=== PATIENT | male | born 1955 | race African-American/Black ===

== ENCOUNTER 2024-10-31 15:56 | Emergency (ER) | payer OTHER, SELFPAY ==
[2024-10-31 16:01] VITALS: BP 147/78
[2024-10-31 16:40] LABS: % Basophils 0.5 % (0-2); % Eosinophils 1.3 % (0-6); % Immature Granulocytes 0.3 % (0-0.5); % Lymphocytes 46.6 % (20.5-51.1); % Monocytes 8.4 % (1.7-9.3); % Neutrophils 42.9 % (42.2-75.2); Absolute Eosinophils 0.1 10^3/uL (0-0.7); Absolute Lymphocytes 3.5 10^3/uL (1.2-3.4); Absolute Monocytes 0.6 10^3/uL (0.1-0.6); Absolute Neutrophils 3.2 10^3/uL (1.4-6.5); Hematocrit 38.6 % (39.0-52.0); Hemoglobin 12.7 g/dL (13.0-18.0); Mean Corp Hgb Conc. 32.9 g/dL (33.0-37.0); Mean Corpuscular Hgb 28.1 pg (27.0-31.0); Mean Corpuscular Volume 85.4 fL (80.0-94.0); Mean Platelet Volume 10.4 fL (7.4-10.4); Nucleated Red Blood Cells % 0 % (-); Platelet Count 189 10^3/uL (130-400); Red Blood Cell Count 4.52 10^6/uL (4.70-6.10); Red Cell Dist. Width 12.8 % (11.5-14.5); White Blood Cell Count 7.5 10^3/uL (4.8-10.8)
[2024-10-31 16:58] LABS: ALT (SGPT) 22 U/L (0-50); AST (SGOT) 22 U/L (17-59); Albumin 5.1 g/dl (3.5-5.0); Alkaline Phosphatase 114 U/L (38-126); Blood Urea Nitrogen 15 mg/dl (9-20); Calcium 10.1 mg/dl (8.4-10.2); Carbon Dioxide 27 mmol/L (22-30); Chloride 103 mmol/L (98-107); Glucose 170 mg/dl (70-99); Potassium 4.4 mmol/L (3.5-5.1); Sodium 141 mmol/L (135-145); Total Bilirubin 0.5 mg/dl (0.2-1.3); Total Protein 8.6 g/dl (6.3-8.2); eGFR > 60.00
[2024-10-31 17:08] LABS: Troponin I < 0.012 ng/ml
[2024-10-31 18:48] VITALS: BP 105/75
--- NOTE | 2024-10-31 19:45 | ED.GENMED ---
History of Present Illness
General
Chief Complaint: Chest Pain
Source: patient
Time Seen by Provider: 10/31/24 19:33
History of Present Illness
History of Present Illness:
69-year-old male presents to the emergency room complaining of pain in the left lower chest that has been occurring intermittently for the past 3 or so days. He describes it as a sharp pain that is present for less than a second. It occurs every
minute or so. No associated shortness of breath, nausea, diaphoresis. The pain does not radiate. It does not get worse with deep inspiration. Movement does not change the pain or cause the pain. He denies any fever, chills.
Past History
Past History
ED Past Medical History: NIDDM and Other (Genital herpes)
Social History
Tobacco: Non-smoker
Phy Exam
Physical Exam
Physical Exam:
General: Awake, Alert, Oriented X3. No acute distress.
Vitals: unremarkable
Head: Atraumatic
Eyes: Pupils equal, EOMI
Throat: Airway intact, no exudates
Chest wall: No rash, no tenderness to palpation, no crepitance
Neck: Trachea midline
Lungs: Clear and equal b/l
Heart: Regular rate, no murmurs
Abd: Soft, Nontender, No pulsatile mass
Neuro: Nonfocal
Skin: Warm, dry, no rash
Extremities: pulses equal b/l, no edema
Scores
Heart Score for Chest Pain Patients
STEMI patient?: No
History: Slightly or Non-Suspicious
ECG: Nonspecific Repolarization
Age: >45 - <65 years
Risk Factors: >/= 3 Risk Factors or History of CAD
Troponin: </= Normal Limit
Heart Score for Chest Pain Patients: 4
Heart Score Risk: 20.3% MACE over next 6 weeks
Course
Orders/Labs/Results
Orders:
Orders
10/31/24 15:57
Electrocardiogram (*1) Urgent
Reason for Study: Chest Pain
EKG- Treatment ONCE
10/31/24 16:29
Complete Blood Count/With Diff Urgent
Comprehensive Metabolic Panel Urgent
Troponin I Urgent
10/31/24 19:41
Electrocardiogram (*1) Urgent
Reason for Study: Chest Pain
EKG- Treatment ONCE
10/31/24 19:42
CR Chest - 2 Views Urgent
Comment:
Reason For Exam: chest pain
10/31/24 19:57
Troponin I Urgent
Abnormal Lab Results
10/31/24
16:29
RBC 4.52 L 10^6/uL
(4.70-6.10)
Hgb 12.7 L g/dL
(13.0-18.0)
Hct 38.6 L %
(39.0-52.0)
MCHC 32.9 L g/dL
(33.0-37.0)
Absolute Lymphs (auto) 3.5 H 10^3/uL
(1.2-3.4)
Glucose 170 H mg/dl
(70-99)
Total Protein 8.6 H g/dl
(6.3-8.2)
Albumin 5.1 H g/dl
(3.5-5.0)
10/31/24 16:29
10/31/24 16:29
Vital Signs
Initial and Last Documented VS:
Initial Vital Signs
Temp Pulse Resp BP Pulse Ox
98.2 F 77 18 147/78 99
10/31/24 16:01 10/31/24 16:01 10/31/24 16:01 10/31/24 16:01 10/31/24 16:01
Last Documented Vital Signs
Temp Pulse Resp BP Pulse Ox
97.7 F 76 19 145/77 98
03/31/25 18:48 10/31/24 20:22 10/31/24 20:22 10/31/24 20:22 10/31/24 20:22
MDM/Problems Addressed
Differential Diagnosis Includes:
ACS, PE, pneumothorax, musculoskeletal chest pain
MDM/Problems Addressed:
Patient presents with episodes of fleeting left-sided chest pain. Patient appears quite stable. EKG shows no acute ischemic changes x 2. Troponin negative x 2. Chest x-ray is unremarkable. No risk factors for PE and the presentation does not
seem typical for PE. Patient stable for discharge and outpatient follow-up with his primary care provider.
*Radiology
Radiology exam reviewed: preliminary read by ED provider (No acute abnormalities on my review of the patient's chest)
*Pulse Oximetry
Patient hypoxic: no
*EKG
Interpreted by ED Provider?: Yes
Heart Rate: 72
Rate: normal
Rhythm: sinus
Cammal: normal axis
Interval: normal interval
QRS Pattern: normal QRS
Ischemia: non-specific ST changes
*Metalsmith Interpretation
Rate: normal
Interpretation: normal
Rhythm: sinus
*Critical Care Note
Total Time (30-74mins, 75-104mins- exclusive of procedures): Not Applicable
ED Attending Note
-
Portions of this chart may have been created with voice recognition software.� Occasional wrong word or��sound alike� substitutions may have occurred due to the inherent limitations of voice recognition software.
Discharge Plan
Departure
Patient Disposition: Home (Routine Discharge)
Date of Disposition: 10/31/24
Time of Disposition: 20:50
Patient with high blood pressure during this ER visit?: Yes
Condition: Good
Discharge Problem:
Chest pain
Instructions: Chest Pain PCP Follow Up, BLOOD PRESSURE
Prescriptions:
No Action
metformin 500 mg tablet
1,000 mg PO BID
ascorbic acid (vitamin C) [Vitamin C] 500 mg Tablet
500 mg PO DAILY
glipizide 5 mg tablet
5 mg PO DAILY
cholecalciferol (vitamin D3) [Vitamin D3] 25 mcg (1,000 unit) Tablet
25 mcg PO DAILY
Januvia 100 mg tablet
100 mg PO DAILY
tamsulosin 0.4 mg Capsule
0.4 mg PO DAILY 30 Days Qty: 30 0RF
linezolid [Zyvox] 600 mg tablet
600 mg PO Q12H 10 Days Qty: 20 0RF
Interventions
Interventions:
*Risk Screen - Suicide Last Done: 10/31/24 16:01
*General Assessment Last Done: 10/31/24 16:01
*Neglect/Abuse Screening Last Done: 10/31/24 16:01
*ED COVID-19 Vaccine History Last Done: 10/31/24 16:01
*Nursing Disposition Last Done: 10/31/24 21:09
ED- Cardiac Assessment Last Done: 10/31/24 19:59
Discharge Date and Time
Discharge Date/Time: 10/31/24 21:09
Print Language: [id number]
[2024-10-31 20:22] VITALS: BP 145/77
[2024-10-31 20:32] LABS: Troponin I < 0.012 ng/ml
== END 2024-10-31 21:09 | disposition home or self-care (01) ==
LOC: EMR 15:56
PROVIDERS: Student in an Organized Health Care Education/Training Program; EMERGENCY PHYSICIAN Emergency Medicine
DX: R07.89 Other chest pain (principal); E11.9 Type 2 diabetes mellitus without complications; R03.0 Elevated blood-pressure reading, without diagnosis of hypertension
CPT/HCPCS: 99285; 71046; 80053; 84484; 85025; 93005